=== PATIENT | male | born 1960 | race Caucasian/White ===

== ENCOUNTER 2016-06-10 10:39 | Emergency (ER) | payer OTHER ==
[~2016-06-10] VITALS: Ht 200.7 cm; Wt 118.0 kg
[2016-06-10 10:56] VITALS: Ht 200.7 cm; Wt 118.0 kg
[2016-06-10] MEDS ORDERED: ONDANSETRON (ODT) 4 MG TAB ODT STA (14:20)
[2016-06-10] MEDS ORDERED: HYDROmorphONE 1 MG/ML SYG IM STA (14:20)
[2016-06-10] MEDS ORDERED: LORAZEPAM 1 MG TAB PO ONE (14:30)
[2016-06-10] MEDS ORDERED: HYDR-906 PO (14:59)
[2016-06-10] MEDS ORDERED: ALPR0.25 PO (14:59)
--- NOTE | 2016-06-10 15:03 | ERD ---
ER Documentation Chief Complaint Date/Time DATE: 06/10/16 TIME: 15:01 Chief Complaint FOOT PAIN/SWELLLING; HX OF EPILEPSY, AFIB HPI This is a 55-year-old male who is here because he said he had an anxiety attack and because the bottom of his feet hurt bilaterally. Patient is homeless and says he is on his feet all day. Patient says he was recently discharged from an outside hospital for cellulitis. Patient is not diabetic and does not have any chest pain cough shortness of breath abdominal pain vomiting diarrhea no swelling to the legs or erythema. Patient is a vague historian and keeps changing his story about why he is here ROS All systems reviewed and are negative except as per history of present illness. Medications Home Meds Active Scripts Hydrocodone/Acetaminophen ([place] 5-325 Tablet) 1 Each Tablet, 1 TAB PO Q6H Y for PAIN, #12 TAB Prov:EULA KEITH DO 06/10/16 Alprazolam* (Xanax*) 0.25 Mg Tablet, 0.25 MG PO TID, #10 TAB Prov:EULA KEITH DO 06/10/16 Allergies Allergies: Coded Allergies: No Known Allergy (Unverified , 06/10/16) FmHx Family History: No coronary disease Physical Exam Vitals Vital Signs Date Time Temp Pulse Resp B/P Pulse Ox O2 Delivery O2 Flow Rate FiO2 06/10/16 10:56 98.0 96 19 113/66 96 Physical Exam Const: Well-developed, well-nourished Head: Atraumatic, normocephalic Eyes: Normal Conjunctiva, PERRLA, EOMI, normal sclera, no nystagmus ENT: Normal External Ears, Nose and Mouth, moist mucus membranes. Neck: Full range of motion. No meningismus, no lymphadenopathy. Resp: Clear to auscultation bilaterally, no wheezing, rhonchi, rales Cardio: Regular rate and rhythm, no murmurs, S1 S2 present Abd: Soft, non tender x 4, non distended. Normal bowel sounds, no guarding or rebound, no pulsitile abdominal masses or bruits Skin: No petechiae or rashes, no ecchymosis , no maculopapular rash Back: No midline or flank tenderness Ext: No cyanosis, or edema, FROM x 4, normal inspection, neurovascularly intact x 4, complains of tenderness at the bottom of his feet bilaterally at the metatarsal phalangeal joints. There is some reproducible tenderness is mild no erythema no abscess no broken skin or wounds no swelling or redness Neur: Awake and alert, STR 5/5 x 4, sensation intact x 4, no focal findings, cerebellum intact Psych: Normal Mood and Affect Results 24 hrs Current Medications Medications (Trade) Dose Ordered Sig/Марина Route PRN Reason Start Time Stop Time Status Last Admin Dose Admin Hydromorphone HCl (Dilaudid) 1 mg ONCE STAT IM 06/10/16 14:20 06/10/16 14:21 DC 06/10/16 14:51 Ondansetron HCl (Zofran Odt) 4 mg ONCE STAT ODT 06/10/16 14:20 06/10/16 14:21 DC 06/10/16 14:48 Lorazepam (Ativan) 1 mg ONCE ONCE PO 06/10/16 14:30 06/10/16 14:31 DC 06/10/16 14:49 Procedures/MDM Patient received some pain meds and anxiety meds Departure Diagnosis: Primary Impression: Anxiety Additional Impression: Foot pain Laterality: bilateral Qualified Code: M79.671 - Pain in both feet Condition: Stable Patient Instructions: Anxiety Reaction, Sprain Foot EULA KEITH DO Jun 10, 2016 15:03
== END 2016-06-10 16:01 | disposition home or self-care (01) ==
LOC: E/R 10:39
DX: F41.9 Anxiety disorder, unspecified (principal); M79.672 Pain in left foot
CPT/HCPCS: J1170; Z7610; 96372